=== PATIENT | female | born 1955 | race Caucasian/White ===

== ENCOUNTER 2020-06-24 16:23 | Inpatient (IN) | payer BC, MEDICARE, OTHER ==
[2020-06-24 20:39] VITALS: BMI 38.7
[2020-06-25] MEDS: HYDROcodone/Acetaminophen 5/325 mg Tablet PO PRN ×2 (01:08→09:38)
[2020-06-25] MEDS ORDERED: Dextrose 50% Abboject 50 ML SYRINGE SLOW IVP PRN (02:01)
[2020-06-25] MEDS ORDERED: Acetaminophen 325 MG TAB PO PRN (02:01)
[2020-06-25] MEDS ORDERED: Dextrose 5% in Water 1,000 ML IV PRN (02:01)
--- NOTE | 2020-06-25 02:07 | PDOC.HHP ---
Hospitalist HPI - History of Present Illness Shortness of breath History of Present Illness: 64-year-old woman with a history of hypertension, diabetes and hyperlipidemia presented to ED at [facility] due to progressive shortness of breath. She was diagnosed with Covid about 8 days ago. She started experiencing shortness of breath 3 days ago. Patient was noted to desaturate to 86 to 88% on room air in the ED and was therefore placed on oxygen by nasal cannula. CT chest done demonstrated bilateral patchy opacities suggestive of Covid pneumonia. Patient was given IV antibiotics, IV dexamethasone and transferred here for further management. She denied any chest pain. He endorsed nonproductive cough. Hospitalist ROS - Review of Systems Other: She denied abdominal pain or diarrhea. She denied any nausea or vomiting. Except as documented, all other systems reviewed and negative. - Medication Medications: Active Medications Generic Name Dose Route Start Last Admin Trade Name Freq PRN Reason Stop Dose Admin Hydrocodone Bitart/Acetaminophen 2 tab 06/25/20 00:32 06/25/20 01:08 Hydrocodone/Acetaminophen 5/325 Mg Tablet PO 2 tab Q6H PRN Administration Pain Medication Instructions Recorded Confirmed Type Bisoprolol/Hydrochlorothiazide 1 tab PO DAILY 06/25/20 06/25/20 History [Bisoprolol-Hctz 5-6.25 mg Tab] Celecoxib 100 mg PO DAILY 06/25/20 06/25/20 History Ergocalciferol [Drisdol] 1 tab PO Q3DAYS 06/25/20 06/25/20 History Estradiol/Norethindrone Acet 1 tab PO DAILY 06/25/20 06/25/20 History [Mimvey] HYDROcodone/Acetaminophen 2 tab PO Q6H PRN 06/25/20 06/25/20 History [Hydrocodone-Acetamin 5-325 mg] Levothyroxine Sodium 1 tab PO DAILY 06/25/20 06/25/20 History Oxybutynin Chloride [Oxybutynin 1 tab PO DAILY 06/25/20 06/25/20 History Chloride ER] Rosuvastatin [Crestor] 1 tab PO HS 06/25/20 06/25/20 History metFORMIN HCl [Metformin HCl] 1 tab PO BID 06/25/20 06/25/20 History Hospitalist History - Past Medical History Cardiac: reports: HTN Endocrine: reports: Diabetes, Hypothyroidism, Other (Hyperlipidemia) Other Medical History: Obesity - Family History Family History: reports: cardiac disorder (Father) - Social History Smoking Status: Never smoker Alcohol: reports: None Drugs: reports: none - Exam General Appearance: NAD, awake alert Eye: PERRL, anicteric sclera ENT: normocephalic atraumatic, moist mucosa Neck: supple, no JVD Heart: RRR, no murmur Respiratory: CTAB, no wheezes, no rales Gastrointestinal: soft, non-tender, non-distended Extremities: no cyanosis, no edema Skin: no lesions, no rashes Neurological: cranial nerve grossly intact, no weakness, no focal deficits Musculoskeletal: normal tone, normal strength Psychiatric: normal affect, normal behavior, A&O x 3 Hospitalist Results - Radiology Interpretation CT scan - chest Status: report reviewed by me (Diffuse patchy ground glass opacities.) Hospitalist H&P A/P - Problem (1) Pneumonia due to COVID-19 virus Code(s): U07.1 - COVID-19; J12.89 - OTHER VIRAL PNEUMONIA Status: Acute (2) Acute respiratory failure with hypoxia Code(s): J96.01 - ACUTE RESPIRATORY FAILURE WITH HYPOXIA Status: Acute (3) Diabetes mellitus type 2 in obese Code(s): E11.69 - TYPE 2 DIABETES MELLITUS WITH OTHER SPECIFIED COMPLICATION; E66.9 - OBESITY, UNSPECIFIED Status: Acute (4) Hypertension Code(s): I10 - ESSENTIAL (PRIMARY) HYPERTENSION Status: Acute (5) Hypothyroidism Code(s): E03.9 - HYPOTHYROIDISM, UNSPECIFIED Status: Acute - Plan Plan: Placed under observation. Supplemental oxygen Start IV dexamethasone. Monitor respiratory status. Assess for home oxygen qualification on discharge. Monitor inflammatory markers. Vitamin supplementation. Patient wishes to be full code.
[2020-06-25 05:41] LABS: Anion Gap 15 mmol/L (10-20); BUN (Urea Nitrogen) 13 mg/dL (9.8-20.1); Calc. Creatinine Clearance 124 mL/min (70-130); Calcium 8.6 mg/dL (7.8-10.44); Carbon Dioxide 22 mmol/L (23-31); Chloride 102 mmol/L (98-107); Estimated GFR-MDRD 72; Glucose 261 mg/dL (80-115); Sodium 135 mmol/L (136-145)
[2020-06-25] MEDS: Levothyroxine 150 MCG TAB PO SCH (05:51)
[2020-06-25] MEDS: HumaLOG 300 UNITS/3 ML VIAL SC PRN ×3 (05:55→17:33)
[2020-06-25 06:29] LABS: Hemoglobin 15.1 g/dL (12.0-16.0); Mean Corpuscular HGB CONC 33.7 g/dL (32.0-36.0); Mean Corpuscular Hemoglobin 29.9 pg (27.0-31.0); Mean Corpuscular Volume 88.7 fL (78.0-98.0); Mean Platelet Volume 6.6 fL (7.4-10.4); Platelet Count 181 thou/uL (130-400); Red Blood Cell (RBC) Count 5.07 mill/uL (4.20-5.40); White Blood Cell (WBC) Count 6.6 thou/uL (4.8-10.8)
[2020-06-25] MEDS ORDERED: Enoxaparin Sodium 40 MG/0.4 ML SYRINGE SC SCH (09:00)
[2020-06-25] MEDS ORDERED: Dexamethasone 4 mg/ml Vial SLOW IVP SCH (09:00)
[2020-06-25] MEDS ORDERED: Dexamethasone 6 MG in Sodium Chloride 0.9% 50 ML IVPB SCH (09:00)
[2020-06-25] MEDS: Bisoprolol Fumarate/HCTZ 5 mg/6.25 mg Tablet PO SCH (09:23)
[2020-06-25] MEDS: Ascorbic Acid 500 mg Chewable Tablet PO SCH (09:23)
[2020-06-25] MEDS: Oxybutynin ER 5 MG TAB PO SCH (09:24)
[2020-06-25] MEDS: Cholecalciferol 1,000 UNITS (25 MCG) TAB PO SCH (09:24)
[2020-06-25] MEDS: Zinc Sulfate 220 MG CAP PO SCH (09:24)
[2020-06-25 09:37] LABS: Band 4 % (5-11); Eosinophils 1 % (0-10); Lymphocytes 17 % (21-51); MDiff Complete? YES; Monocytes 5 % (0-10); Neutrophil 73 % (42-75); Platelet Morphology Comment Appears Adequate; RBC Morphology Normal
[2020-06-25] MEDS ORDERED: REMDESIVIR (EUA) 200 MG in Sodium Chloride 0.9% 250 ML 210 ML IV SCH (10:15)
[2020-06-25 11:19] LABS: ALT (SGPT) 23 U/L (8-55); AST (SGOT) 18 U/L (5-34); Albumin 3.4 g/dL (3.4-4.8); Alkaline Phosphatase 47 U/L (40-110); Bilirubin, Direct 0.3 mg/dL (0.1-0.3); Bilirubin, Total 0.5 mg/dL (0.2-1.2); Protein, Total 6.6 g/dL (6.0-8.3)
--- NOTE | 2020-06-25 17:11 | PDOC.EVN ---
Event Note - Event Note Event Note: Chart reviewed, patient seen. Discussed with infectious disease service. Patient will be started on remdesivir.
[2020-06-25] MEDS: Enoxaparin Sodium 40 MG/0.4 ML SYRINGE SC SCH (20:09)
[2020-06-25] MEDS: Rosuvastatin 20 MG TAB PO SCH (20:09)
[2020-06-26] MEDS: HYDROcodone/Acetaminophen 5/325 mg Tablet PO PRN ×2 (01:53→21:54)
[2020-06-26] MEDS: Levothyroxine 150 MCG TAB PO SCH (05:03)
[2020-06-26 07:40] LABS: ALT (SGPT) 24 U/L (8-55); AST (SGOT) 21 U/L (5-34); Albumin 3.3 g/dL (3.4-4.8); Alkaline Phosphatase 50 U/L (40-110); Bilirubin, Direct 0.2 mg/dL (0.1-0.3); Bilirubin, Total 0.4 mg/dL (0.2-1.2); Protein, Total 6.4 g/dL (6.0-8.3)
[2020-06-26 10:26] LABS: ALT (SGPT) 20 U/L (8-55); AST (SGOT) 17 U/L (5-34); Albumin 3.4 g/dL (3.4-4.8); Alkaline Phosphatase 49 U/L (40-110); Bilirubin, Direct 0.2 mg/dL (0.1-0.3); Bilirubin, Total 0.4 mg/dL (0.2-1.2); Protein, Total 6.3 g/dL (6.0-8.3)
[2020-06-26] MEDS: REMDESIVIR (EUA) 100 MG in Sodium Chloride 0.9% 250 ML 230 ML IV SCH (11:00)
[2020-06-26] MEDS: Dexamethasone 4 mg/ml Vial SLOW IVP SCH (11:02)
[2020-06-26] MEDS: Enoxaparin Sodium 40 MG/0.4 ML SYRINGE SC SCH ×2 (11:02→21:40)
[2020-06-26] MEDS: Oxybutynin ER 5 MG TAB PO SCH (11:03)
[2020-06-26] MEDS: Ascorbic Acid 500 mg Chewable Tablet PO SCH (11:03)
[2020-06-26] MEDS: Cholecalciferol 1,000 UNITS (25 MCG) TAB PO SCH (11:03)
[2020-06-26] MEDS: Bisoprolol Fumarate/HCTZ 5 mg/6.25 mg Tablet PO SCH (11:04)
[2020-06-26] MEDS: Zinc Sulfate 220 MG CAP PO SCH (11:04)
[2020-06-26] MEDS: Ondansetron PF 4 MG/2 ML Vial IVP PRN (12:48)
--- NOTE | 2020-06-26 13:03 | PDOC.HOSPP ---
- Subjective Encounter Date: 06/26/20 Encounter Time: 11:15 Subjective: pt up in bed no complains - Objective Vital Signs & Weight: Vital Signs (12 hours) Temp Pulse Resp BP Pulse Ox 06/26/20 11:15 98.1 F 61 16 121/59 L 92 L 06/26/20 05:13 95 06/26/20 03:16 97.9 F 52 L 16 109/54 L 95 06/26/20 02:08 98 F 55 L 18 116/57 L 98 Weight Admit Weight 247 lb Weight 247 lb I&O: 06/25/20 06/26/20 06/27/20 06:59 06:59 06:59 Intake Total 1210 Balance 1210 Result Diagrams: 06/25/20 04:59 06/25/20 04:59 Additional Labs: Accuchecks 06/26/20 06/26/20 06/25/20 11:19 05:10 20:27 POC Glucose 149 H 159 H 221 H 06/25/20 17:08 POC Glucose 238 H Hospitalist ROS - Review of Systems Respiratory: reports: shortness of breath. denies: cough, dry, hemoptysis, SOB with excertion, pleuritic pain, sputum, wheezing, other Cardiovascular: denies: chest pain, palpitations, orthopnea, paroxysmal noc. dyspnea, edema, light headedness, other Gastrointestinal: denies: nausea, vomiting, abdominal pain, diarrhea, constipation, melena, hematochezia, other - Medication Medications: Active Medications Generic Name Dose Route Start Last Admin Trade Name Freq PRN Reason Stop Dose Admin Hydrocodone Bitart/Acetaminophen 2 tab 06/25/20 00:32 06/26/20 01:53 Hydrocodone/Acetaminophen 5/325 Mg Tablet PO 2 tab Q6H PRN Administration Pain Ascorbic Acid 1,000 mg 06/25/20 09:00 06/26/20 11:03 Ascorbic Acid 500 Mg Chewable Tablet PO 1,000 mg DAILY KEIRA Administration Bisoprolol Fumarate/HCTZ 1 tab 06/25/20 09:00 06/26/20 11:04 Bisoprolol Fumarate/Hctz 5 Mg/6.25 Mg Tablet PO 1 tab DAILY KEIRA Administration Cholecalciferol 2,000 units 06/25/20 09:00 06/26/20 11:03 Cholecalciferol 1,000 Units (25 Mcg) Tab PO 2,000 units DAILY KEIRA Administration Dexamethasone 6 mg 06/26/20 09:00 06/26/20 11:02 Dexamethasone 4 Mg/Ml Vial SLOW IVP 6 mg DAILY KEIRA Administration Enoxaparin Sodium 40 mg 06/25/20 21:00 06/26/20 11:02 Enoxaparin Sodium 40 Mg/0.4 Ml Syringe SC 40 mg 0900,2100 KEIRA Administration Remdesivir 100 mg/ Sodium 250 mls @ 250 mls/hr 06/26/20 10:00 06/26/20 11:00 Chloride IV 06/29/20 10:59 250 mls 1000 KEIRA Administration Insulin Human Lispro 0 units 06/25/20 02:01 06/25/20 17:33 Humalog 300 Units/3 Ml Vial SC 4 unit .MODERATE SLIDING SC PRN Administration Moderate Correctional Scale Levothyroxine Sodium 150 mcg 06/25/20 06:00 06/26/20 05:03 Levothyroxine 150 Mcg Tab PO 150 mcg 0600 KEIRA Administration Ondansetron HCl 4 mg 06/26/20 12:31 06/26/20 12:48 Ondansetron Pf 4 Mg/2 Ml Vial IVP 4 mg Q6H PRN Administration Nausea/Vomiting Oxybutynin Chloride 15 mg 06/25/20 09:00 06/26/20 11:03 Oxybutynin Er 5 Mg Tab PO 15 mg DAILY KEIRA Administration Rosuvastatin Calcium 20 mg 06/25/20 21:00 06/25/20 20:09 Rosuvastatin 20 Mg Tab PO 20 mg HS KEIRA Administration Zinc Sulfate 220 mg 06/25/20 09:00 06/26/20 11:04 Zinc Sulfate 220 Mg Cap PO 220 mg DAILY KEIRA Administration - Exam Neck: negative: supple, symmetric, no JVD, no thyromegaly, no lymphadenopathy, no carotid bruit, JVD Heart: negative: RRR, no murmur, no gallops, no rubs, normal peripheral pulses, irregular, diminshed peripheral pulses, murmur present, II/IV, III/IV Respiratory: negative: CTAB, no wheezes, no rales, no ronchi, normal chest expansion, no tachypnea, normal percussion, rales, rhonchi, tachypneic, wheezes Gastrointestinal: negative: soft, non-tender, non-distended, normal bowel sounds, no palpable masses, no hepatomegaly, no splenomegaly, no bruit, no guarding, no rigidity, tender to palpation, distended, diminished bowl sounds, voluntary guarding Hosp A/P (1) Acute respiratory failure with hypoxia Code(s): J96.01 - ACUTE RESPIRATORY FAILURE WITH HYPOXIA Status: Acute (2) Diabetes mellitus type 2 in obese Code(s): E11.69 - TYPE 2 DIABETES MELLITUS WITH OTHER SPECIFIED COMPLICATION; E66.9 - OBESITY, UNSPECIFIED Status: Acute (3) Hypertension Code(s): I10 - ESSENTIAL (PRIMARY) HYPERTENSION Status: Acute (4) Hypothyroidism Code(s): E03.9 - HYPOTHYROIDISM, UNSPECIFIED Status: Acute (5) Pneumonia due to COVID-19 virus Code(s): U07.1 - COVID-19; J12.89 - OTHER VIRAL PNEUMONIA Status: Acute - Plan will continue current management with remdesivir and steroids. will continue to trend inflammatory markers. pt is on 4L nc.
[2020-06-26] MEDS: metFORMIN 500 MG TAB PO SCH (17:38)
[2020-06-26] MEDS: HumaLOG 300 UNITS/3 ML VIAL SC PRN (17:55)
[2020-06-26] MEDS: Famotidine 20 MG TAB PO SCH (21:40)
[2020-06-26] MEDS: Rosuvastatin 20 MG TAB PO SCH (21:40)
[2020-06-27] MEDS: Levothyroxine 150 MCG TAB PO SCH (05:02)
[2020-06-27 06:13] LABS: #Lymphocytes 1.6 thou/uL (1.20-3.40); #Monocytes 0.4 thou/uL (0.11-0.59); #Neutrophils 3.7 thou/uL (1.40-6.50); %Basophils 0.8 % (0.0-1.0); %Eosinophils 0.8 % (0.0-10.0); %Monocytes 6.8 % (0.0-10.0); %Neutrophils 63.6 % (42.0-75.0); Hemoglobin 14.6 g/dL (12.0-16.0); Mean Corpuscular HGB CONC 33.7 g/dL (32.0-36.0); Mean Corpuscular Hemoglobin 29.6 pg (27.0-31.0); Mean Corpuscular Volume 87.8 fL (78.0-98.0); Mean Platelet Volume 6.4 fL (7.4-10.4); Platelet Count 194 thou/uL (130-400); RBC Distribution Width 11.9 % (11.5-14.5); Red Blood Cell (RBC) Count 4.92 mill/uL (4.20-5.40); White Blood Cell (WBC) Count 5.8 thou/uL (4.8-10.8)
[2020-06-27 06:31] LABS: Albumin 3.3 g/dL (3.4-4.8); Anion Gap 15 mmol/L (10-20); BUN (Urea Nitrogen) 16 mg/dL (9.8-20.1); Bilirubin, Direct 0.2 mg/dL (0.1-0.3); Bilirubin, Total 0.4 mg/dL (0.2-1.2); Calc. Creatinine Clearance 129 mL/min (70-130); Calcium 8.7 mg/dL (7.8-10.44); Carbon Dioxide 24 mmol/L (23-31); Chloride 102 mmol/L (98-107); Estimated GFR-MDRD 75; Glucose 159 mg/dL (80-115); Potassium 3.6 mmol/L (3.5-5.1); Protein, Total 6.3 g/dL (6.0-8.3); Sodium 137 mmol/L (136-145)
[2020-06-27 06:32] LABS: ALT (SGPT) 18 U/L (8-55); AST (SGOT) 16 U/L (5-34); Alkaline Phosphatase 48 U/L (40-110)
[2020-06-27] MEDS: Oxybutynin ER 5 MG TAB PO SCH (08:50)
[2020-06-27] MEDS: Bisoprolol Fumarate/HCTZ 5 mg/6.25 mg Tablet PO SCH (08:50)
[2020-06-27] MEDS: Ascorbic Acid 500 mg Chewable Tablet PO SCH (08:50)
[2020-06-27] MEDS: metFORMIN 500 MG TAB PO SCH ×2 (08:50→16:59)
[2020-06-27] MEDS: Zinc Sulfate 220 MG CAP PO SCH (08:51)
[2020-06-27] MEDS: Cholecalciferol 1,000 UNITS (25 MCG) TAB PO SCH (08:51)
[2020-06-27] MEDS: Dexamethasone 4 mg/ml Vial SLOW IVP SCH (08:51)
[2020-06-27] MEDS: Famotidine 20 MG TAB PO SCH ×2 (08:51→20:24)
[2020-06-27] MEDS: Enoxaparin Sodium 40 MG/0.4 ML SYRINGE SC SCH ×2 (08:51→20:25)
[2020-06-27] MEDS: REMDESIVIR (EUA) 100 MG in Sodium Chloride 0.9% 250 ML 230 ML IV SCH (10:26)
[2020-06-27] MEDS: HumaLOG 300 UNITS/3 ML VIAL SC PRN ×3 (12:56→20:47)
--- NOTE | 2020-06-27 12:57 | PDOC.HOSPP ---
- Subjective Encounter Date: 06/27/20 Encounter Time: 10:30 Subjective: pt up in bed still feels sob. Howver she has been getting up to bathroom - Objective Vital Signs & Weight: Vital Signs (12 hours) Temp Pulse Resp BP Pulse Ox 06/27/20 08:00 97 06/27/20 04:00 97.6 F 51 L 18 103/69 98 Weight Admit Weight 247 lb Weight 247 lb I&O: 06/26/20 06/27/20 06/28/20 06:59 06:59 06:59 Intake Total 1210 730 Balance 1210 730 Result Diagrams: 06/27/20 05:42 06/27/20 05:42 Additional Labs: Accuchecks 06/27/20 06/27/20 06/26/20 12:27 04:16 21:49 POC Glucose 246 H 153 H 189 H 06/26/20 06/26/20 17:45 16:36 POC Glucose 364 H 308 H Hospitalist ROS - Review of Systems Cardiovascular: denies: chest pain, palpitations, orthopnea, paroxysmal noc. dyspnea, edema, light headedness, other Gastrointestinal: denies: nausea, vomiting, abdominal pain, diarrhea, constipation, melena, hematochezia, other Genitourinary: denies: dysuria, frequency, incontinence, hematuria, retention, other - Medication Medications: Active Medications Generic Name Dose Route Start Last Admin Trade Name Freq PRN Reason Stop Dose Admin Hydrocodone Bitart/Acetaminophen 2 tab 06/25/20 00:32 06/26/20 21:54 Hydrocodone/Acetaminophen 5/325 Mg Tablet PO 2 tab Q6H PRN Administration Pain Ascorbic Acid 1,000 mg 06/25/20 09:00 06/27/20 08:50 Ascorbic Acid 500 Mg Chewable Tablet PO 1,000 mg DAILY KEIRA Administration Bisoprolol Fumarate/HCTZ 1 tab 06/25/20 09:00 06/27/20 08:50 Bisoprolol Fumarate/Hctz 5 Mg/6.25 Mg Tablet PO 1 tab DAILY KEIRA Administration Cholecalciferol 2,000 units 06/25/20 09:00 06/27/20 08:51 Cholecalciferol 1,000 Units (25 Mcg) Tab PO 2,000 units DAILY KEIRA Administration Dexamethasone 6 mg 06/26/20 09:00 06/27/20 08:51 Dexamethasone 4 Mg/Ml Vial SLOW IVP 6 mg DAILY KEIRA Administration Enoxaparin Sodium 40 mg 06/25/20 21:00 06/27/20 08:51 Enoxaparin Sodium 40 Mg/0.4 Ml Syringe SC 40 mg 0900,2100 KEIRA Administration Famotidine 20 mg 06/26/20 21:00 06/27/20 08:51 Famotidine 20 Mg Tab PO 20 mg BID KEIRA Administration Remdesivir 100 mg/ Sodium 250 mls @ 250 mls/hr 06/26/20 10:00 06/27/20 10:26 Chloride IV 06/29/20 10:59 250 mls 1000 KEIRA Administration Insulin Human Lispro 0 units 06/25/20 02:01 06/26/20 17:55 Humalog 300 Units/3 Ml Vial SC 10 unit .MODERATE SLIDING SC PRN Administration Moderate Correctional Scale Levothyroxine Sodium 150 mcg 06/25/20 06:00 06/27/20 05:02 Levothyroxine 150 Mcg Tab PO 150 mcg 0600 KEIRA Administration Metformin HCl 1,000 mg 06/26/20 17:00 06/27/20 08:50 Metformin 500 Mg Tab PO 1,000 mg BID-WM KEIRA Administration Ondansetron HCl 4 mg 06/26/20 12:31 06/26/20 12:48 Ondansetron Pf 4 Mg/2 Ml Vial IVP 4 mg Q6H PRN Administration Nausea/Vomiting Oxybutynin Chloride 15 mg 06/25/20 09:00 06/27/20 08:50 Oxybutynin Er 5 Mg Tab PO 15 mg DAILY KEIRA Administration Rosuvastatin Calcium 20 mg 06/25/20 21:00 06/26/20 21:40 Rosuvastatin 20 Mg Tab PO 20 mg HS KEIRA Administration Zinc Sulfate 220 mg 06/25/20 09:00 06/27/20 08:51 Zinc Sulfate 220 Mg Cap PO 220 mg DAILY KEIRA Administration - Exam Neck: negative: supple, symmetric, no JVD, no thyromegaly, no lymphadenopathy, no carotid bruit, JVD Heart: negative: RRR, no murmur, no gallops, no rubs, normal peripheral pulses, irregular, diminshed peripheral pulses, murmur present, II/IV, III/IV Respiratory: negative: CTAB, no wheezes, no rales, no ronchi, normal chest expansion, no tachypnea, normal percussion, rales, rhonchi, tachypneic, wheezes Gastrointestinal: negative: soft, non-tender, non-distended, normal bowel sounds, no palpable masses, no hepatomegaly, no splenomegaly, no bruit, no guarding, no rigidity, tender to palpation, distended, diminished bowl sounds, voluntary guarding Hosp A/P (1) Acute respiratory failure with hypoxia Code(s): J96.01 - ACUTE RESPIRATORY FAILURE WITH HYPOXIA Status: Acute (2) Diabetes mellitus type 2 in obese Code(s): E11.69 - TYPE 2 DIABETES MELLITUS WITH OTHER SPECIFIED COMPLICATION; E66.9 - OBESITY, UNSPECIFIED Status: Acute (3) Hypertension Code(s): I10 - ESSENTIAL (PRIMARY) HYPERTENSION Status: Acute (4) Hypothyroidism Code(s): E03.9 - HYPOTHYROIDISM, UNSPECIFIED Status: Acute (5) Pneumonia due to COVID-19 virus Code(s): U07.1 - COVID-19; J12.89 - OTHER VIRAL PNEUMONIA Status: Acute - Plan will continue current management with remdesivir and steroids. will continue to trend inflammatory markers. pt is on 4L nc. 06/27 will continue current remdesivir 2/5 doses and steroids. pt encouraged to ambulate. pt is on dvt ppx/steroids.
[2020-06-27] MEDS: Rosuvastatin 20 MG TAB PO SCH (20:24)
[2020-06-27] MEDS: HYDROcodone/Acetaminophen 5/325 mg Tablet PO PRN (20:24)
[2020-06-28] MEDS: HumaLOG 300 UNITS/3 ML VIAL SC PRN ×2 (04:51→17:07)
[2020-06-28] MEDS: Levothyroxine 150 MCG TAB PO SCH (05:10)
[2020-06-28] MEDS: Bisoprolol Fumarate/HCTZ 5 mg/6.25 mg Tablet PO SCH (08:37)
[2020-06-28] MEDS: Famotidine 20 MG TAB PO SCH ×2 (08:37→19:44)
[2020-06-28] MEDS: Ascorbic Acid 500 mg Chewable Tablet PO SCH (08:38)
[2020-06-28] MEDS: Cholecalciferol 1,000 UNITS (25 MCG) TAB PO SCH (08:38)
[2020-06-28] MEDS: Zinc Sulfate 220 MG CAP PO SCH (08:38)
[2020-06-28] MEDS: Enoxaparin Sodium 40 MG/0.4 ML SYRINGE SC SCH ×2 (08:38→19:45)
[2020-06-28] MEDS: metFORMIN 500 MG TAB PO SCH ×2 (08:38→17:08)
[2020-06-28] MEDS: Dexamethasone 4 mg/ml Vial SLOW IVP SCH (08:39)
[2020-06-28] MEDS: Oxybutynin ER 5 MG TAB PO SCH (08:39)
[2020-06-28 08:42] LABS: ALT (SGPT) 21 U/L (8-55); AST (SGOT) 15 U/L (5-34); Albumin 3.4 g/dL (3.4-4.8); Alkaline Phosphatase 46 U/L (40-110); Bilirubin, Direct 0.2 mg/dL (0.1-0.3); Bilirubin, Total 0.4 mg/dL (0.2-1.2); Protein, Total 6.4 g/dL (6.0-8.3)
[2020-06-28] MEDS: REMDESIVIR (EUA) 100 MG in Sodium Chloride 0.9% 250 ML 230 ML IV SCH (10:55)
[2020-06-28] MEDS: Ondansetron PF 4 MG/2 ML Vial IVP PRN (11:02)
--- NOTE | 2020-06-28 15:05 | PDOC.HOSPP ---
- Subjective Encounter Date: 06/28/20 Encounter Time: 12:30 Subjective: pt up in chair feels nauseated. - Objective Vital Signs & Weight: Vital Signs (12 hours) Temp Pulse Resp BP Pulse Ox 06/28/20 08:00 97 06/28/20 04:00 97.6 F 71 18 119/76 99 Weight Admit Weight 247 lb Weight 247 lb I&O: 06/27/20 06/28/20 06/29/20 06:59 06:59 06:59 Intake Total 730 950 Balance 730 950 Result Diagrams: 06/27/20 05:42 06/27/20 05:42 Additional Labs: Accuchecks 06/28/20 06/27/20 06/27/20 04:35 20:30 17:04 POC Glucose 158 H 285 H 340 H Hospitalist ROS - Review of Systems Cardiovascular: denies: chest pain, palpitations, orthopnea, paroxysmal noc. dyspnea, edema, light headedness, other Gastrointestinal: reports: nausea Genitourinary: denies: dysuria, frequency, incontinence, hematuria, retention, other - Medication Medications: Active Medications Generic Name Dose Route Start Last Admin Trade Name Freq PRN Reason Stop Dose Admin Hydrocodone Bitart/Acetaminophen 2 tab 06/25/20 00:32 06/27/20 20:24 Hydrocodone/Acetaminophen 5/325 Mg Tablet PO 2 tab Q6H PRN Administration Pain Ascorbic Acid 1,000 mg 06/25/20 09:00 06/28/20 08:38 Ascorbic Acid 500 Mg Chewable Tablet PO 1,000 mg DAILY KEIRA Administration Bisoprolol Fumarate/HCTZ 1 tab 06/25/20 09:00 06/28/20 08:37 Bisoprolol Fumarate/Hctz 5 Mg/6.25 Mg Tablet PO 1 tab DAILY KEIRA Administration Cholecalciferol 2,000 units 06/25/20 09:00 06/28/20 08:38 Cholecalciferol 1,000 Units (25 Mcg) Tab PO 2,000 units DAILY KEIRA Administration Dexamethasone 6 mg 06/26/20 09:00 06/28/20 08:39 Dexamethasone 4 Mg/Ml Vial SLOW IVP 6 mg DAILY KEIRA Administration Enoxaparin Sodium 40 mg 06/25/20 21:00 06/28/20 08:38 Enoxaparin Sodium 40 Mg/0.4 Ml Syringe SC 40 mg 0900,2099 KEIRA Administration Famotidine 20 mg 06/26/20 21:00 06/28/20 08:37 Famotidine 20 Mg Tab PO 20 mg BID KEIRA Administration Remdesivir 100 mg/ Sodium 250 mls @ 250 mls/hr 06/26/20 10:00 06/28/20 10:55 Chloride IV 06/29/20 10:59 250 mls 1000 KEIRA Administration Insulin Human Lispro 0 units 06/25/20 02:01 06/28/20 04:51 Humalog 300 Units/3 Ml Vial SC 2 unit .MODERATE SLIDING SC PRN Administration Moderate Correctional Scale Levothyroxine Sodium 150 mcg 06/25/20 06:00 06/28/20 05:10 Levothyroxine 150 Mcg Tab PO 150 mcg 0600 KEIRA Administration Metformin HCl 1,000 mg 06/26/20 17:00 06/28/20 08:38 Metformin 500 Mg Tab PO 1,000 mg BID-WM KEIRA Administration Ondansetron HCl 4 mg 06/26/20 12:31 06/28/20 11:02 Ondansetron Pf 4 Mg/2 Ml Vial IVP 4 mg Q6H PRN Administration Nausea/Vomiting Oxybutynin Chloride 15 mg 06/25/20 09:00 06/28/20 08:39 Oxybutynin Er 5 Mg Tab PO 15 mg DAILY KEIRA Administration Rosuvastatin Calcium 20 mg 06/25/20 21:00 06/27/20 20:24 Rosuvastatin 20 Mg Tab PO 20 mg HS KEIRA Administration Zinc Sulfate 220 mg 06/25/20 09:00 06/28/20 08:38 Zinc Sulfate 220 Mg Cap PO 220 mg DAILY KEIRA Administration - Exam Heart: negative: RRR, no murmur, no gallops, no rubs, normal peripheral pulses, irregular, diminshed peripheral pulses, murmur present, II/IV, III/IV Respiratory: negative: CTAB, no wheezes, no rales, no ronchi, normal chest expansion, no tachypnea, normal percussion, rales, rhonchi, tachypneic, wheezes Gastrointestinal: negative: soft, non-tender, non-distended, normal bowel sounds, no palpable masses, no hepatomegaly, no splenomegaly, no bruit, no guarding, no rigidity, tender to palpation, distended, diminished bowl sounds, voluntary guarding Extremities: negative: no cyanosis, no clubbing, no edema, 1+ LE edema, 2+ LE edema, clubbing Hosp A/P (1) Acute respiratory failure with hypoxia Code(s): J96.01 - ACUTE RESPIRATORY FAILURE WITH HYPOXIA Status: Acute (2) Diabetes mellitus type 2 in obese Code(s): E11.69 - TYPE 2 DIABETES MELLITUS WITH OTHER SPECIFIED COMPLICATION; E66.9 - OBESITY, UNSPECIFIED Status: Acute (3) Hypertension Code(s): I10 - ESSENTIAL (PRIMARY) HYPERTENSION Status: Acute (4) Hypothyroidism Code(s): E03.9 - HYPOTHYROIDISM, UNSPECIFIED Status: Acute (5) Pneumonia due to COVID-19 virus Code(s): U07.1 - COVID-19; J12.89 - OTHER VIRAL PNEUMONIA Status: Acute - Plan will continue current management with remdesivir and steroids. will continue to trend inflammatory markers. pt is on 4L nc. 06/27 will continue current remdesivir 2/5 doses and steroids. pt encouraged to ambulate. pt is on dvt ppx/steroids. 06/28 will continue remdesivir for now, she is doing well just nauseated. pt on steroids and dvt ppx. possible home in the next 24-48hr.
[2020-06-28] MEDS: Rosuvastatin 20 MG TAB PO SCH (19:43)
[2020-06-28] MEDS: HYDROcodone/Acetaminophen 5/325 mg Tablet PO PRN (19:44)
[2020-06-29] MEDS: Levothyroxine 150 MCG TAB PO SCH (06:06)
[2020-06-29] MEDS: HumaLOG 300 UNITS/3 ML VIAL SC PRN ×2 (06:22→12:20)
[2020-06-29 06:49] LABS: ALT (SGPT) 20 U/L (8-55); AST (SGOT) 13 U/L (5-34); Albumin 3.3 g/dL (3.4-4.8); Alkaline Phosphatase 45 U/L (40-110); Bilirubin, Direct 0.2 mg/dL (0.1-0.3); Bilirubin, Total 0.3 mg/dL (0.2-1.2); Protein, Total 6.1 g/dL (6.0-8.3)
[2020-06-29] MEDS: Cholecalciferol 1,000 UNITS (25 MCG) TAB PO SCH (08:23)
[2020-06-29] MEDS: metFORMIN 500 MG TAB PO SCH ×2 (08:23→16:56)
[2020-06-29] MEDS: Ascorbic Acid 500 mg Chewable Tablet PO SCH (08:23)
[2020-06-29] MEDS: Bisoprolol Fumarate/HCTZ 5 mg/6.25 mg Tablet PO SCH (08:23)
[2020-06-29] MEDS: Oxybutynin ER 5 MG TAB PO SCH (08:24)
[2020-06-29] MEDS: Famotidine 20 MG TAB PO SCH ×2 (08:24→21:34)
[2020-06-29] MEDS: Zinc Sulfate 220 MG CAP PO SCH (08:24)
[2020-06-29] MEDS: Dexamethasone 4 mg/ml Vial SLOW IVP SCH (08:24)
[2020-06-29] MEDS: Enoxaparin Sodium 40 MG/0.4 ML SYRINGE SC SCH ×2 (08:24→21:33)
[2020-06-29] MEDS: REMDESIVIR (EUA) 100 MG in Sodium Chloride 0.9% 250 ML 230 ML IV SCH (10:02)
--- NOTE | 2020-06-29 12:48 | PDOC.HOSPP ---
- Subjective Encounter Date: 06/29/20 Encounter Time: 11:15 Subjective: pt up in chair feels nauseated. - Objective Vital Signs & Weight: Vital Signs (12 hours) Temp Pulse Resp BP Pulse Ox 06/29/20 08:00 97 06/29/20 06:10 97.7 F 44 L 18 123/72 97 Weight Admit Weight 247 lb Weight 247 lb I&O: 06/28/20 06/29/20 06/30/20 06:59 06:59 06:59 Intake Total 950 490 Balance 950 490 Result Diagrams: 06/27/20 05:42 06/27/20 05:42 Additional Labs: Accuchecks 06/29/20 06/28/20 06/28/20 06:09 19:51 16:30 POC Glucose 190 H 269 H 292 H Hospitalist ROS - Review of Systems Cardiovascular: denies: chest pain, palpitations, orthopnea, paroxysmal noc. dyspnea, edema, light headedness, other Gastrointestinal: reports: nausea Genitourinary: denies: dysuria, frequency, incontinence, hematuria, retention, other Musculoskeletal: denies: neck pain, shoulder pain, arm pain, back pain, hand pain, leg pain, foot pain, other - Medication Medications: Active Medications Generic Name Dose Route Start Last Admin Trade Name Freq PRN Reason Stop Dose Admin Hydrocodone Bitart/Acetaminophen 2 tab 06/25/20 00:32 06/28/20 19:44 Hydrocodone/Acetaminophen 5/325 Mg Tablet PO 2 tab Q6H PRN Administration Pain Ascorbic Acid 1,000 mg 06/25/20 09:00 06/29/20 08:23 Ascorbic Acid 500 Mg Chewable Tablet PO 1,000 mg DAILY KEIRA Administration Bisoprolol Fumarate/HCTZ 1 tab 06/25/20 09:00 06/29/20 08:23 Bisoprolol Fumarate/Hctz 5 Mg/6.25 Mg Tablet PO 1 tab DAILY KEIRA Administration Cholecalciferol 2,000 units 06/25/20 09:00 06/29/20 08:23 Cholecalciferol 1,000 Units (25 Mcg) Tab PO 2,000 units DAILY KEIRA Administration Dexamethasone 6 mg 06/26/20 09:00 06/29/20 08:24 Dexamethasone 4 Mg/Ml Vial SLOW IVP 6 mg DAILY KEIRA Administration Enoxaparin Sodium 40 mg 06/25/20 21:00 06/29/20 08:24 Enoxaparin Sodium 40 Mg/0.4 Ml Syringe SC 40 mg 0900,2100 KEIRA Administration Famotidine 20 mg 06/26/20 21:00 06/29/20 08:24 Famotidine 20 Mg Tab PO 20 mg BID KEIRA Administration Insulin Human Lispro 0 units 06/25/20 02:01 06/29/20 12:20 Humalog 300 Units/3 Ml Vial SC 4 unit .MODERATE SLIDING SC PRN Administration Moderate Correctional Scale Levothyroxine Sodium 150 mcg 06/25/20 06:00 06/29/20 06:06 Levothyroxine 150 Mcg Tab PO 150 mcg 0600 KEIRA Administration Metformin HCl 1,000 mg 06/26/20 17:00 06/29/20 08:23 Metformin 500 Mg Tab PO 1,000 mg BID-WM KEIRA Administration Ondansetron HCl 4 mg 06/26/20 12:31 06/28/20 11:02 Ondansetron Pf 4 Mg/2 Ml Vial IVP 4 mg Q6H PRN Administration Nausea/Vomiting Oxybutynin Chloride 15 mg 06/25/20 09:00 06/29/20 08:24 Oxybutynin Er 5 Mg Tab PO 15 mg DAILY KEIRA Administration Rosuvastatin Calcium 20 mg 06/25/20 21:00 06/28/20 19:43 Rosuvastatin 20 Mg Tab PO 20 mg HS KEIRA Administration Zinc Sulfate 220 mg 06/25/20 09:00 06/29/20 08:24 Zinc Sulfate 220 Mg Cap PO 220 mg DAILY KEIRA Administration - Exam Heart: negative: RRR, no murmur, no gallops, no rubs, normal peripheral pulses, irregular, diminshed peripheral pulses, murmur present, II/IV, III/IV Gastrointestinal: negative: soft, non-tender, non-distended, normal bowel sounds, no palpable masses, no hepatomegaly, no splenomegaly, no bruit, no guar ding, no rigidity, tender to palpation, distended, diminished bowl sounds, voluntary guarding Extremities: negative: no cyanosis, no clubbing, no edema, 1+ LE edema, 2+ LE edema, clubbing Hosp A/P (1) Acute respiratory failure with hypoxia Code(s): J96.01 - ACUTE RESPIRATORY FAILURE WITH HYPOXIA Status: Acute (2) Diabetes mellitus type 2 in obese Code(s): E11.69 - TYPE 2 DIABETES MELLITUS WITH OTHER SPECIFIED COMPLICATION; E66.9 - OBESITY, UNSPECIFIED Status: Acute (3) Hypertension Code(s): I10 - ESSENTIAL (PRIMARY) HYPERTENSION Status: Acute (4) Hypothyroidism Code(s): E03.9 - HYPOTHYROIDISM, UNSPECIFIED Status: Acute (5) Pneumonia due to COVID-19 virus Code(s): U07.1 - COVID-19; J12.89 - OTHER VIRAL PNEUMONIA Status: Acute - Plan will continue current management with remdesivir and steroids. will continue to trend inflammatory markers. pt is on 4L nc. 06/27 will continue current remdesivir 2/5 doses and steroids. pt encouraged to ambulate. pt is on dvt ppx/steroids. 06/28 will continue remdesivir for now, she is doing well just nauseated. pt on steroids and dvt ppx. possible home in the next 24-48hr. 06/29 pt has finished her remdesivir today. will continue steroids and dvt ppx. possible home in am.
[2020-06-29] MEDS: Rosuvastatin 20 MG TAB PO SCH (21:34)
[2020-06-29] MEDS: HYDROcodone/Acetaminophen 5/325 mg Tablet PO PRN (21:47)
[2020-06-30] MEDS: Levothyroxine 150 MCG TAB PO SCH (05:56)
[2020-06-30 08:57] LABS: #Basophils 0.1 thou/uL (0.0-0.2); #Eosinphils 0.2 thou/uL (0.0-0.7); #Lymphocytes 2.2 thou/uL (1.20-3.40); #Monocytes 0.6 thou/uL (0.11-0.59); #Neutrophils 4.4 thou/uL (1.40-6.50); %Basophils 0.9 % (0.0-1.0); %Eosinophils 2.6 % (0.0-10.0); %Lymphocytes 29.7 % (21.0-51.0); %Monocytes 7.4 % (0.0-10.0); %Neutrophils 59.4 % (42.0-75.0); Hemoglobin 14.9 g/dL (12.0-16.0); Mean Corpuscular Hemoglobin 30.4 pg (27.0-31.0); Mean Corpuscular Volume 89.2 fL (78.0-98.0); Mean Platelet Volume 6.3 fL (7.4-10.4); Platelet Count 218 thou/uL (130-400); RBC Distribution Width 11.9 % (11.5-14.5); Red Blood Cell (RBC) Count 4.92 mill/uL (4.20-5.40); White Blood Cell (WBC) Count 7.4 thou/uL (4.8-10.8)
[2020-06-30] MEDS: Bisoprolol Fumarate/HCTZ 5 mg/6.25 mg Tablet PO SCH (09:02)
[2020-06-30] MEDS: Ascorbic Acid 500 mg Chewable Tablet PO SCH (09:02)
[2020-06-30] MEDS: Zinc Sulfate 220 MG CAP PO SCH (09:02)
[2020-06-30] MEDS: Cholecalciferol 1,000 UNITS (25 MCG) TAB PO SCH (09:02)
[2020-06-30] MEDS: Famotidine 20 MG TAB PO SCH ×2 (09:02→21:21)
[2020-06-30] MEDS: metFORMIN 500 MG TAB PO SCH ×2 (09:02→17:34)
[2020-06-30] MEDS: Dexamethasone 4 mg/ml Vial SLOW IVP SCH (09:02)
[2020-06-30] MEDS: Enoxaparin Sodium 40 MG/0.4 ML SYRINGE SC SCH ×2 (09:03→21:21)
[2020-06-30] MEDS: Oxybutynin ER 5 MG TAB PO SCH (09:08)
[2020-06-30 09:17] LABS: ALT (SGPT) 20 U/L (8-55); AST (SGOT) 16 U/L (5-34); Albumin 3.1 g/dL (3.4-4.8); Alkaline Phosphatase 43 U/L (40-110); Anion Gap 14 mmol/L (10-20); BUN (Urea Nitrogen) 17 mg/dL (9.8-20.1); Bilirubin, Direct 0.2 mg/dL (0.1-0.3); Bilirubin, Total 0.4 mg/dL (0.2-1.2); Calc. Creatinine Clearance 114 mL/min (70-130); Calcium 8.3 mg/dL (7.8-10.44); Carbon Dioxide 23 mmol/L (23-31); Chloride 106 mmol/L (98-107); Estimated GFR-MDRD 65; Glucose 119 mg/dL (80-115); Potassium 3.9 mmol/L (3.5-5.1); Sodium 139 mmol/L (136-145)
[2020-06-30] MEDS: HumaLOG 300 UNITS/3 ML VIAL SC PRN (17:35)
[2020-06-30] MEDS: HYDROcodone/Acetaminophen 5/325 mg Tablet PO PRN (21:21)
[2020-06-30] MEDS: Rosuvastatin 20 MG TAB PO SCH (21:21)
[2020-07-01] MEDS: Levothyroxine 150 MCG TAB PO SCH (05:40)
[2020-07-01] MEDS: HumaLOG 300 UNITS/3 ML VIAL SC PRN ×2 (05:48→12:17)
[2020-07-01] MEDS: Famotidine 20 MG TAB PO SCH (07:48)
[2020-07-01] MEDS: Cholecalciferol 1,000 UNITS (25 MCG) TAB PO SCH (07:48)
[2020-07-01] MEDS: Ascorbic Acid 500 mg Chewable Tablet PO SCH (07:49)
[2020-07-01] MEDS: Dexamethasone 4 mg/ml Vial SLOW IVP SCH (07:49)
[2020-07-01] MEDS: metFORMIN 500 MG TAB PO SCH (07:49)
[2020-07-01] MEDS: Zinc Sulfate 220 MG CAP PO SCH (07:49)
[2020-07-01] MEDS: Enoxaparin Sodium 40 MG/0.4 ML SYRINGE SC SCH (07:51)
[2020-07-01] MEDS: Oxybutynin ER 5 MG TAB PO SCH (12:02)
[2020-07-01] MEDS: Bisoprolol Fumarate/HCTZ 5 mg/6.25 mg Tablet PO SCH (12:03)
[2020-07-01 12:24] VITALS: TEMP 97.7
[2020-07-01 16:02] VITALS: BP 119/73
--- NOTE | 2020-07-01 17:43 | PDOC.HOSPP ---
- Subjective Encounter Date: 06/30/20 Encounter Time: 11:15 Subjective: pt up in bed no complains - Objective Vital Signs & Weight: Vital Signs (12 hours) Temp Pulse Resp BP Pulse Ox 07/01/20 16:00 97.7 F 47 L 18 119/73 99 07/01/20 12:00 97.7 F 62 16 124/78 95 07/01/20 08:00 97.2 F L 45 L 18 119/60 95 Weight Admit Weight 247 lb Weight 247 lb Result Diagrams: 06/30/20 08:43 06/30/20 08:43 Additional Labs: Accuchecks 07/01/20 07/01/20 07/01/20 15:46 12:09 05:46 POC Glucose 200 H 217 H 170 H 06/30/20 21:27 POC Glucose 237 H Hospitalist ROS - Review of Systems Cardiovascular: denies: chest pain, palpitations, orthopnea, paroxysmal noc. dyspnea, edema, light headedness, other Gastrointestinal: denies: nausea, vomiting, abdominal pain, diarrhea, constipation, melena, hematochezia, other Genitourinary: denies: dysuria, frequency, incontinence, hematuria, retention, other - Exam Neck: negative: supple, symmetric, no JVD, no thyromegaly, no lymphadenopathy, no carotid bruit, JVD Heart: negative: RRR, no murmur, no gallops, no rubs, normal peripheral pulses, irregular, diminshed peripheral pulses, murmur present, II/IV, III/IV Respiratory: negative: CTAB, no wheezes, no rales, no ronchi, normal chest expansion, no tachypnea, normal percussion, rales, rhonchi, tachypneic, wheezes Hosp A/P (1) Acute respiratory failure with hypoxia Code(s): J96.01 - ACUTE RESPIRATORY FAILURE WITH HYPOXIA Status: Acute (2) Diabetes mellitus type 2 in obese Code(s): E11.69 - TYPE 2 DIABETES MELLITUS WITH OTHER SPECIFIED COMPLICATION; E66.9 - OBESITY, UNSPECIFIED Status: Acute (3) Hypertension Code(s): I10 - ESSENTIAL (PRIMARY) HYPERTENSION Status: Acute (4) Hypothyroidism Code(s): E03.9 - HYPOTHYROIDISM, UNSPECIFIED Status: Acute (5) Pneumonia due to COVID-19 virus Code(s): U07.1 - COVID-19; J12.89 - OTHER VIRAL PNEUMONIA Status: Acute - Plan will continue current management with remdesivir and steroids. will continue to trend inflammatory markers. pt is on 4L nc. 06/27 will continue current remdesivir 2/5 doses and steroids. pt encouraged to ambulate. pt is on dvt ppx/steroids. 06/28 will continue remdesivir for now, she is doing well just nauseated. pt on steroids and dvt ppx. possible home in the next 24-48hr. 06/29 pt has finished her remdesivir today. will continue steroids and dvt ppx. possible home in am. 06/30 clinically stable with supposed to be discharged today however she is [employer]. and her oxygen cannot be arranged today. I have decreased her dose of her thyroid medications 150 MCG 100 MCG.
--- NOTE | 2020-07-02 02:53 | DIS ---
DATE OF ADMISSION: 06/25/2020 DATE OF DISCHARGE: 07/01/2020 DISCHARGE DIAGNOSES: 1. Acute hypoxic respiratory failure, most likely secondary from coronavirus disease pneumonia. 2. Coronavirus disease pneumonia. 3. Diabetes. 4. Hypertension. 5. Hypothyroidism. HOSPITAL COURSE: The patient is a 64-year-old female, who initially presented to the hospital on 06/25 with shortness of breath. She was noted to be hypoxic. Initially, she was started on IV antibiotics and dexamethasone. She was given Remdesivir also for 5 days. She continued to improve. She was discharged home on 2 L to 3 L nasal cannula. The patient will continue a 10-day course of dexamethasone. Her inflammatory markers continued to improve. She was noted to have some bradycardia, however she was asymptomatic. At this time, her TSH was checked. Her TSH was low. Her medications were adjusted appropriately. HOME MEDICATIONS: Will be, 1. Decadron 6 mg daily. 2. Levothyroxine 100 mcg daily from 150 and I have asked to follow up with her primary to get her TSH checked in a month. 3. Bisoprolol hydrochlorothiazide 1 p.o. daily. 4. Metformin 1 tablet b.i.d. 5. Oxybutynin 1 tab daily. 6. Rosuvastatin 1 tab at bedtime. 7. Hydrocodone as needed. PHYSICAL EXAMINATION: VITAL SIGNS: On discharge; temperature of 97.7, 62, 18, 99% on room air, and 119/47. GENERAL: She is awake, alert, and oriented x3. Does not appear in distress. CV: S1 and S2 present. No murmurs, rubs, gallops. Again, she will be discharged home. She will follow up with her primary. She does have bradycardia, however she is currently asymptomatic. Job ID: [id number]
== END 2020-07-01 16:12 | disposition home or self-care (01) | DRG 177 ==
LOC: 2SW 16:23 → INTOOBSV 16:23 → OBSVTOIN 06-25 10:32 → T4-A 06-26 23:26
PROVIDERS: ADMIT Student in an Organized Health Care Education/Training Program; ATTEND Internal Medicine
PROC: XW033E5 Introduction of Remdesivir Anti-infective into Peripheral Vein, Percutaneous Approach, New Technology Group 5 (ICD-10-PCS; principal; 2020-06-25)
PROC: 8E0ZXY6 Isolation (ICD-10-PCS; 2020-06-25)
DX: U07.1 COVID-19 (principal); J12.89 Other viral pneumonia; J96.01 Acute respiratory failure with hypoxia; I10 Essential (primary) hypertension; E78.5 Hyperlipidemia, unspecified; E03.9 Hypothyroidism, unspecified; E66.9 Obesity, unspecified; E11.69 Type 2 diabetes mellitus with other specified complication; Z68.37 Body mass index [BMI] 37.0-37.9, adult; Z79.84 Long term (current) use of oral hypoglycemic drugs; Z79.899 Other long term (current) drug therapy
CPT/HCPCS: 36415; 36416; 80048; 80053; 80076; 82728; 83615; 84145; 84443; 85007; 85025; 85027; 85379; 86140; 96372; 96374; G0378; J1100; J1650; J2405; J7050

== ENCOUNTER 2022-12-10 13:45 | Outpatient (CLI) | payer BC, MEDICARE | END 2022-12-10 13:46 | disposition home or self-care (01) | LOC: BICCT 13:45 | PROVIDERS: ATTEND Anesthesiology Pain Medicine | DX: M48.062 Spinal stenosis, lumbar region with neurogenic claudication (principal); G89.4 Chronic pain syndrome; M47.816 Spondylosis without myelopathy or radiculopathy, lumbar region; M47.817 Spondylosis without myelopathy or radiculopathy, lumbosacral region; M51.36 Other intervertebral disc degeneration, lumbar region; M51.37 Other intervertebral disc degeneration, lumbosacral region; N28.9 Disorder of kidney and ureter, unspecified | CPT/HCPCS: 72131 ==